=== PATIENT | female | born 1975 | race Caucasian/White ===

== ENCOUNTER 2021-08-03 06:07 | Day surgery (SDC) | payer OTHER ==
[2021-08-03] MEDS ORDERED: Lactated Ringers 1,000 ML IV SCH (06:30)
[2021-08-03] MEDS ORDERED: DIPRIVAN 200 MG/20 ML IV ONE ×3 (08:13→08:24)
[2021-08-03] MEDS ORDERED: Xylocaine-Mpf 2% 5 Ml Vial ONE (08:13)
[2021-08-03] MEDS ORDERED: APRESOLINE 20 MG/ML INJ IV ONE (09:25)
--- NOTE | 2021-08-03 09:31 | OP ---
SURGERY DATE/TIME: 08/03/2021 0745 PREOPERATIVE DIAGNOSES: 1) Anemia. 2) Need for screening colonoscopy. POSTOPERATIVE DIAGNOSES: 1) Normal EGD. 2) Normal colon. PROCEDURES: 1) Diagnostic EGD. 2) Screening colonoscopy. SURGEON: Grayson Jenkins M.D. ANESTHESIA: MAC by Walt Aggarwal CRNA. ESTIMATED BLOOD LOSS: None. SPECIMENS: None. DESCRIPTION OF PROCEDURE: After informed written consent was obtained, the patient was taken to the endoscopy suite. She was placed in the left lateral decubitus position and a bite block inserted. Anesthesia was titrated to desired level of consciousness and under direct visualization the esophagus was traversed. The esophageal mucosa was free of any lesions or defects. Upon entering the stomach there is normal rugated gastric mucosa free of any lesions or defects. The pylorus was traversed and the first and second portions of the duodenum had a normal mucosal appearance. There were no ulcerations or bleeding present. Upon withdrawal again all mucosal structures were carefully inspected and found to be within normal limits. There was a minimal inconsequential hiatal hernia but no other abnormalities encountered. The scope was removed and the scopes were switched. Digital rectal exam showed normal sphincter tone and no internal lesions. The scope was inserted and the entire length of the colon was traversed. The level of the cecum was reached and verified with direct visualization of the ileocecal valve. Upon withdrawal careful mucosal inspection revealed no gross abnormalities. Prep was noted to be fair. Prior to withdrawal retroflexion was performed and showed no internal lesions. The scope was removed and the patient was transferred to the recovery room in good condition.
[2021-08-03 09:51] VITALS: BP 150/97; PULSE 90; O2SAT 99
== END 2021-08-03 10:00 | disposition home or self-care (01) ==
LOC: SDC 06:07
PROVIDERS: ATTEND Family Medicine
DX: Z12.11 Encounter for screening for malignant neoplasm of colon (principal); D64.9 Anemia, unspecified; I10 Essential (primary) hypertension; Z79.899 Other long term (current) drug therapy
CPT/HCPCS: 36415; 81025; J0360; J2704